=== PATIENT | female | born 1995 | race Caucasian/White ===

== ENCOUNTER → 2016-08-27 | Outpatient (CLI) | payer OTHER ==
[~2016-08-27] MED LIST: BIRTH CONTROL PO; CYAN1TAB39 PO; FERR325T20 PO; HYDR2TAB13 PO; LEVO1TAB29; METO10TA82 PO; PRAZ2CAP2
== END | disposition home or self-care (01) ==
LOC: CFH 15:04
PROVIDERS: ATTEND Nurse Practitioner Family
DX: R10.2 Pelvic and perineal pain (principal)
CPT/HCPCS: 76830

== ENCOUNTER → 2017-09-26 | Outpatient (CLI) | payer OTHER ==
[~2017-09-26] MED LIST changes: +ASPI-515 PO; +BUPIVACAINE 0.25% ONE; +EPINEPHRINE 1 MG/ML, 1ML ONE; +FENTANYL PF 100 MCG/2ML ONE; +FERR325T18 PO; -FERR325T20 PO; -HYDR2TAB13 PO; +HYDR2TAB29 PO; +HYDROcodone/APAP 7.5-325MG/15ML UDC ONE; +ONDA4TAB10 PO; +PRENATAL VITAMINS; +PROG50VI IM; +TYLENOL PRN
== END | disposition home or self-care (01) ==
LOC: CFH 13:25
PROVIDERS: ATTEND Physician Assistant
DX: O34.81 Maternal care for other abnormalities of pelvic organs, first trimester (principal); N83.201 Unspecified ovarian cyst, right side; Z3A.01 Less than 8 weeks gestation of pregnancy
CPT/HCPCS: 76801; J0171; J3490

== ENCOUNTER 2017-12-18 09:35 | Outpatient (CLI) | payer OTHER ==
[~2017-12-18] VITALS: Ht 157.5 cm; Wt 53.2 kg
[2017-12-18 09:30] VITALS: BP 98/62
[~2017-12-18 09:35] MED LIST changes: -BUPIVACAINE 0.25% ONE; -EPINEPHRINE 1 MG/ML, 1ML ONE; -FENTANYL PF 100 MCG/2ML ONE; -HYDROcodone/APAP 7.5-325MG/15ML UDC ONE; +PROG100C16 PO; +VITAMIN B PO
[2017-12-18 10:45] LABS: MICROSCOPIC AUTO
== END 2017-12-18 11:57 | disposition home or self-care (01) ==
LOC: LDOP 09:35
PROVIDERS: ATTEND Obstetrics & Gynecology
DX: O26.892 Other specified pregnancy related conditions, second trimester (principal); R10.9 Unspecified abdominal pain; Z3A.19 19 weeks gestation of pregnancy
CPT/HCPCS: 59025; 76817; 81001; 87086; 99211; G0463

== ENCOUNTER 2017-12-23 09:40 | Observation (INO) | payer OTHER ==
[~2017-12-23] VITALS: Ht 157.5 cm; Wt 85.0 kg
[2017-12-23] MEDS ORDERED: ONDANSETRON 2MG/ML, 2ML IVPush ONE ×2 (10:00→16:00)
[2017-12-23] MEDS ORDERED: LACTATED RINGERS 1,000 ML IVBOLUS ONE (10:00)
[2017-12-23] MEDS ORDERED: PLEASE ENTER HEIGHT AND WEIGHT MC SCH (10:00)
[2017-12-23 10:03] VITALS: BP 97/59
[2017-12-23] MEDS ORDERED: ONDANSETRON 2MG/ML, 2ML ONE ×3 (10:06→15:42)
[2017-12-23 10:25] LABS: BASOPHILS # (AUTO) 0.01 x10^3/uL (0-0.1); BASOPHILS % (AUTO) 0 % (0-1); EOSINOPHILS # (AUTO) 0.02 x10^3/uL (0-0.4); EOSINOPHILS % (AUTO) 0 % (1-7); LYMPHOCYTES # (AUTO) 0.33 x10^3/uL (1-3.4); LYMPHOCYTES % (AUTO) 4 % (22-44); MD NO; MEAN CORPUSCULAR HEMOGLOBIN 31.4 pg (27.0-34.8); MEAN CORPUSCULAR HGB CONC 34.6 g/dL (32.4-35.8); MEAN PLATELET VOLUME 8.3 fL (7.4-10.4); MONOCYTES # (AUTO) 0.19 x10^3/uL (0.2-0.8); MONOCYTES % (AUTO) 2 % (2-9); NEUTROPHILS # (AUTO) 7.54 x10^3/uL (1.8-6.8); NEUTROPHILS % (AUTO) 93 % (42-75); PLATELET COUNT 183 x10^3/uL (130-400); RED BLOOD COUNT 3.91 x10^6/uL (3.82-5.3); RED CELL DISTRIBUTION WIDTH 13.5 % (9.6-15.2)
[2017-12-23 10:40] LABS: ALBUMIN 3.1 g/dL (3.4-5.0); ANION GAP 11 mmol/L (5-15); CALCIUM 7.9 mg/dL (8.5-10.1); CHLORIDE 108 mmol/L (98-107)
[2017-12-23] MEDS: D5%-LACTATED RINGERS 1,000 ML IV SCH ×2 (10:42→15:47)
[2017-12-23 10:45] LABS: ALANINE AMINOTRANSFERASE 25 U/L (12-78); ALKALINE PHOSPHATASE 59 U/L (45-117); BILIRUBIN,TOTAL 1.1 mg/dL (0.2-1.0); CREATININE 0.58 mg/dL (0.55-1.02); TOTAL PROTEIN 6.7 g/dL (6.4-8.2)
[2017-12-23 11:17] LABS: MICROSCOPIC NOT IND
[2017-12-23] MEDS ORDERED: ONDANSETRON 2MG/ML, 2ML IVPush PRN (14:30)
[2017-12-23 14:32] LABS: ACETONE, URINE Negative (Negative)
[2017-12-23] MEDS ORDERED: CALCIUM CARBONATE 500 MG TAB.CHEW ONE (15:42)
[2017-12-23] MEDS ORDERED: FAMOTIDINE 20 MG TABLET ONE (15:42)
[2017-12-23] MEDS ORDERED: FAMOTIDINE 20 MG TABLET PO SCH (16:00)
[2017-12-23] MEDS ORDERED: CALCIUM CARBONATE 500 MG TAB.CHEW PO PRN (16:00)
== END 2017-12-23 18:38 | disposition home or self-care (01) ==
LOC: LDOP 09:40 → LDIP 11:37
PROVIDERS: ADMIT Obstetrics & Gynecology; ATTEND Obstetrics & Gynecology
DX: O21.8 Other vomiting complicating pregnancy (principal); O26.22 Pregnancy care for patient with recurrent pregnancy loss, second trimester; Z79.82 Long term (current) use of aspirin; Z3A.19 19 weeks gestation of pregnancy
CPT/HCPCS: 36415; 80053; 81003; 82009; 85025; 87086; 96361; 96374; 96376; G0378; J2405; J7120; J7121; 96360

== ENCOUNTER 2018-02-28 11:09 | Outpatient (CLI) | payer OTHER ==
[~2018-02-28] VITALS: Ht 157.5 cm; Wt 57.1 kg
[2018-02-28 11:56] LABS: MICROSCOPIC NOT IND
[2018-02-28 12:18] VITALS: BP 106/57
== END 2018-02-28 12:38 | disposition home or self-care (01) ==
LOC: LDOP 11:09
PROVIDERS: ATTEND Obstetrics & Gynecology
DX: O26.893 Other specified pregnancy related conditions, third trimester (principal); Z3A.29 29 weeks gestation of pregnancy; R10.9 Unspecified abdominal pain
CPT/HCPCS: 36415; 59025; 81003; 82731; 87086; 99211; G0463

== ENCOUNTER 2018-04-21 14:15 | Outpatient (CLI) | payer OTHER ==
[~2018-04-21] VITALS: Ht 157.5 cm; Wt 65.9 kg
[2018-04-21 15:00] VITALS: BP 101/57
== END 2018-04-21 15:49 | disposition home or self-care (01) ==
LOC: LDOP 14:15
PROVIDERS: ATTEND Obstetrics & Gynecology
DX: O42.913 Preterm premature rupture of membranes, unspecified as to length of time between rupture and onset of labor, third trimester (principal); Z3A.36 36 weeks gestation of pregnancy
CPT/HCPCS: 59025; 84112; 99201; 99211; G0463

== ENCOUNTER 2018-05-08 09:12 | Outpatient (CLI) | payer OTHER ==
[~2018-05-08] VITALS: Ht 157.5 cm; Wt 68.1 kg
[2018-05-08 09:20] VITALS: BP 126/73
== END 2018-05-08 11:51 | disposition home or self-care (01) ==
LOC: LDOP 09:12
PROVIDERS: ATTEND Obstetrics & Gynecology
DX: O36.8130 Decreased fetal movements, third trimester, not applicable or unspecified (principal); Z3A.39 39 weeks gestation of pregnancy
CPT/HCPCS: 59025; 76819; 99211; G0463